=== PATIENT | female | born 1970 | race Caucasian/White ===

== ENCOUNTER → 2022-08-11 | Emergency (ER) | payer MEDICAID ==
[~2022-08-11] VITALS: Ht 172.7 cm; Wt 68.0 kg
[~2022-08-11] MED LIST: ACETAMINOPHEN 325 MG TAB PO ONE
[2022-08-11 22:33] VITALS: BP 141/60
== END | disposition left against medical advice (07) ==
LOC: ER 22:17
DX: R22.43 Localized swelling, mass and lump, lower limb, bilateral (principal); L53.9 Erythematous condition, unspecified; M79.605 Pain in left leg; M79.604 Pain in right leg; Z53.21 Procedure and treatment not carried out due to patient leaving prior to being seen by health care provider